=== PATIENT | male | born 1985 | race American Indian/Alaskan Native ===

== ENCOUNTER 2018-10-17 04:31 | Emergency (ER) | payer OTHER ==
[2018-10-17 04:31] VITALS: BMI 29.2
--- NOTE | 2018-10-17 05:48 | ED PDOC ---
HPI: Psych/Substance Abuse Time Seen by Provider: 10/17/18 04:34 Chief Complaint (Nursing): Alcohol Ingestion Chief Complaint (Provider): Alcohol use History Per: Patient History/Exam Limitations: no limitations Additional Complaint(s): 33yo male, otherwise well, brought to ER for evaluation after patient was found laying on the streets. Patient states he had an argument with his over treatment of his son and states instead of continuing the verbal argument, he went outside and laid down on the street. Patient states he regrets his actions and states it was "overdramatic." He denies any thoughts of harming himself or others. Patient admits to alcohol use, denies any other drug use. No medical complaints. Past Medical History Reviewed: Historical Data, Nursing Documentation, Vital Signs Vital Signs: Last Vital Signs Temp 98 F 10/17/18 04:49 Pulse 119 H 10/17/18 04:49 Resp 16 10/17/18 04:49 BP 129/80 10/17/18 04:49 Pulse Ox 98 10/17/18 04:49 - Medical History PMH: No Chronic Diseases - Surgical History Surgical History: No Surg Hx - Family History Family History: States: No Known Family Hx - Social History Alcohol: Occasional - Immunization History Hx Tetanus Toxoid Vaccination: No Hx Influenza Vaccination: No Hx Pneumococcal Vaccination: No - Home Medications Home Medications: Ambulatory Orders Medication Instructions Recorded No Known Home Med 11/25/17 - Allergies Allergies/Adverse Reactions: Allergies Allergy/AdvReac Type Severity Reaction Status Date / Time No Known Allergies Allergy Verified 12/12/14 02:31 Review of Systems ROS Statement: Except As Marked, All Systems Reviewed And Found Negative (as per HPI) Psych: Negative for: Suicidal ideation Physical Exam - Reviewed Nursing Documentation Reviewed: Yes Vital Signs Reviewed: Yes - Physical Exam Appears: Positive for: Non-toxic, No Acute Distress Head Exam: Positive for: ATRAUMATIC, NORMAL INSPECTION, NORMOCEPHALIC Skin: Positive for: Normal Color Eye Exam: Positive for: Normal appearance Neck: Positive for: Supple Cardiovascular/Chest: Positive for: Regular Rate, Rhythm Respiratory: Positive for: Normal Breath Sounds Extremity: Positive for: Normal ROM Neurologic/Psych: Positive for: Alert, Oriented, Mood/Affect (happy, calm and cooperative). Negative for: Motor/Sensory Deficits - ECG O2 Sat by Pulse Oximetry: 98 (RA) Pulse Ox Interpretation: Normal Medical Decision Making Medical Decision Making: Assessment: 33yo gentleman with alcohol intoxication Patient is awake, alert and oriented x 3. He is pleasant and calm; patient has a steady gait. Patient is not a risk to self or others and is cleared for discharge home. Scribe Attestation: Documented by Tanisha Montalvo, acting as a scribe for Saji Villa MD. Provider Scribe Attestation: All medical record entries made by the Scribe were at my direction and perso kathleen dictated by me. I have reviewed the chart and agree that the record accurately reflects my personal performance of the history, physical exam, medical decision making, and the department course for this patient. I have also personally directed, reviewed, and agree with the discharge instructions and disposition. Disposition - Clinical Impression Clinical Impression: Alcohol abuse - Disposition Referrals: Yaakov Zamorano MD [Family Provider] - Disposition: Routine/Home Disposition Time: 05:00 Condition: STABLE Instructions: Alcohol Abuse and Alcoholism (DC) Forms: [employer] ([place])
[2018-10-17 06:49] VITALS: BP 131/84; PULSE 98; RESP 18; TEMP 98.2
[2018-10-17 19:26] VITALS: O2SAT 98
== END 2018-10-17 06:50 | disposition home or self-care (01) ==
LOC: H.ER 04:31
DX: F10.129 Alcohol abuse with intoxication, unspecified (principal)